=== PATIENT | female | born 1970 | race African-American/Black ===

== ENCOUNTER 2022-09-10 17:02 | Outpatient (CLI) | payer OTHER, SELFPAY ==
--- NOTE | ~2022-09-10 | MM_ITS ---
EXAMINATION: MM screening christine BI w fidel HISTORY: Screening mammogram, family history of breast cancer in her mother. TECHNIQUE: Craniocaudal and mediolateral oblique 3-D tomosynthesis images were obtained and synthetic 2-D images were generated. CAD analysis was submitted and interpreted. COMPARISON: No prior mammogram is available for comparison at this institution. BREAST PARENCHYMAL COMPOSITION:There are scattered areas of fibroglandular density. FINDINGS: No suspicious mass, calcification, or architectural distortion are identified in either magan ast to suggest malignancy. IMPRESSION: No mammographic evidence of malignancy. Recommend routine screening mammography in one year. BI-RADS Category 1: Negative Reviewed, dictated and finalized at location .
== END 2022-09-10 17:03 | disposition home or self-care (01) ==
PROVIDERS: PCP Physician Assistant; Visit Provider Physician Assistant
DX: Z12.31 Encounter for screening mammogram for malignant neoplasm of breast (principal)
CPT/HCPCS: 77063; 77067

== ENCOUNTER 2025-04-28 01:33 | Day surgery (SDC) | payer OTHER, SELFPAY ==
[2025-04-07 13:10] VITALS: BMI 35.9
[2025-04-28 07:50] VITALS: BP 135/85; PULSE 72; RESP 18; TEMP 36.3; O2SAT 100; BMI 34.0
[2025-04-28] MEDS: LACTATED RINGERS 1,000 ML 150 ML IV CONT (07:52)
--- NOTE | 2025-04-28 08:32 | WPDANESEPPF ---
Anes - Initial Pre Proc Eval Procedure: Operation Date: 04/28/25 09:00 Proposed Procedures p Screening Colonoscopy - Edmund Cortes MD Date/Time: 04/28/25 08:32 Surgeon: Edmund Cortes MD Pre Op Diagnosis: Screening Patient Data Age: 54 Gender: F Height: 1.57 m Weight: 84.5 kg Last Vital Signs Temp 36.3 C L 04/28/25 07:50 Pulse 72 04/28/25 07:50 Resp 18 04/28/25 07:50 BP 135/85 04/28/25 07:50 Pulse Ox 100 04/28/25 07:50 O2 Del Method Room Air 04/28/25 07:50 Allergies Allergy/AdvReac Type Severity Reaction Status Date / Time No Known Allergies Allergy Verified 04/28/25 07:47 Home Medications ?Medication ?Instructions ?Recorded ?Confirmed ?Type ubrogepant 100 mg tablet (Ubrelvy) 100 mg PO ONCE #16 tabs 04/25/23 04/07/25 Rx amitriptyline 25 mg tablet 25 mg PO QHS #90 tabs 09/23/24 04/28/25 Rx betamethasone valerate 0.1 % 1 applic topical BID PRN skin 09/23/24 04/07/25 Rx topical ointment irritation #45 grams eletriptan 40 mg tablet See Rx Instructions PO .COMPLEX #9 09/23/24 04/07/25 Rx tabs semaglutide (weight loss) 0.25 0.25 mg (0.5 mL) subcut WEEKLY #2 09/23/24 04/07/25 Rx mg/0.5 mL subcutaneous pen mL injector (Wegovy) Patient hx anesthesia problems: none Family hx anesthesia problems: none Results Review: All pre-operative results and documents have been reviewed as part of the pre-operative evaluation. [facility] Past Medical History Medical History Migraine Family History Family History Father Hypertension Mother Cancer Breast cancer Vertigo Daughter Asthma Sibling No problems noted. 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 Informed Consent: The patient's anesthetic plan and its attendant risks and benefits were discussed with the patient/family/POA. Questions were solicited and answers provided to the satisfaction of the patient/family/POA.
--- NOTE | 2025-04-28 08:57 | PM.IMHP2 ---
H&P: HPI History of Present Illness Date/Time: 04/28/25 08:57 Chief Complaint: Screening colonoscopy Narrative: This is the patient's first colonoscopy. There are no GI symptoms and there is no family history of colorectal cancer. Review of Systems Review of Systems: All systems reviewed & are unremarkable except as noted in HPI and below PMFSH Past Medical History Medical History Migraine Family History Family History Father Hypertension Mother Cancer Breast cancer Vertigo Daughter Asthma Sibling No problems noted. 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 Gender identity (if verbalized by the patient): Female Meds Home Medications and Allergies Home Medications ?Medication ?Instructions ?Recorded ?Confirmed ?Type ubrogepant 100 mg tablet (Ubrelvy) 100 mg PO ONCE #16 tabs 04/25/23 04/07/25 Rx amitriptyline 25 mg tablet 25 mg PO QHS #90 tabs 09/23/24 04/28/25 Rx betamethasone valerate 0.1 % 1 applic topical BID PRN skin 09/23/24 04/07/25 Rx topical ointment irritation #45 grams eletriptan 40 mg tablet See Rx Instructions PO .COMPLEX #9 09/23/24 04/07/25 Rx tabs semaglutide (weight loss) 0.25 0.25 mg (0.5 mL) subcut WEEKLY #2 09/23/24 04/07/25 Rx mg/0.5 mL subcutaneous pen mL injector (Wegovy) Allergies Allergy/AdvReac Type Severity Reaction Status Date / Time No Known Allergies Allergy Verified 04/28/25 07:47 Vital Signs Vital Signs - 24 hr 12/04/25 07:50 Temperature 97.3 F L Pulse Rate 72 Respiratory Rate 18 Blood Pressure 135/85 Pulse Oximetry 100 Oxygen Delivery Room Air Exam Const: General: cooperative and healthy appearing Resp: Effort & Inspection: normal respiratory effort and able to speak in complete sentences Auscultation: clear to auscultation bilaterally Cardio: Rate: regular rate Rhythm: regular rhythm GI: Inspection: normal to inspection GI Palp: No No hepatosplenomegaly present Auscultation: normal bowel sounds Rectal Exam: deferred Skin: General skin exam: normal color Psych: Appearance: grossly normal Mental Status: mental status grossly normal Assessment and Plan Assessment and plan (1) Screening for colon cancer: Code(s): Z12.11 - Encounter for screening for malignant neoplasm of colon Status: Acute Assessment and Plan: The patient is deemed a good candidate for the procedure. Consent signed. Will proceed. Prior Studies I have reviewed the following patient records and this information was taken into consideration when formulating the assessment and plan.: previous labs, previous ER visits, previous hospitalizations and previous clinic visits
[2025-04-28 09:40] VITALS: BP 113/68; PULSE 70; RESP 18; O2SAT 99
[2025-04-28 09:50] VITALS: BP 116/79; PULSE 66; RESP 23; O2SAT 100
[2025-04-28 10:00] VITALS: BP 121/75; PULSE 68; RESP 20; O2SAT 100
== END 2025-04-28 10:08 | disposition home or self-care (01) ==
PROVIDERS: PCP Nurse Practitioner; Referring Provider Nurse Practitioner; Visit Provider Internal Medicine Gastroenterology
PROC: 0DJD8ZZ Inspection of Lower Intestinal Tract, Via Natural or Artificial Opening Endoscopic (ICD-10-PCS; CPT 45378; principal; 2025-04-28 09:00)
DX: Z12.11 Encounter for screening for malignant neoplasm of colon (principal); E66.9 Obesity, unspecified; Z68.34 Body mass index [BMI] 34.0-34.9, adult
CPT/HCPCS: 45378; J2704; J7120